=== PATIENT | female | born 1980 | race Two or more races ===

== ENCOUNTER → 2017-03-04 09:25 | Outpatient (CLI) | payer OTHER | END | disposition home or self-care (01) | LOC: LAB 09:25 | DX: N91.0 Primary amenorrhea (principal) ==

== ENCOUNTER 2018-02-24 10:56 | Outpatient (CLI) | payer OTHER | END 2018-02-24 11:18 | disposition home or self-care (01) | LOC: LAB 10:56 | DX: N91.2 Amenorrhea, unspecified (principal) ==

== ENCOUNTER 2018-03-04 11:07 | Outpatient (CLI) | payer OTHER | END 2018-03-04 11:15 | disposition home or self-care (01) | LOC: LAB 11:07 | DX: O20.0 Threatened abortion (principal) ==

== ENCOUNTER 2018-10-14 12:59 | Inpatient (IN) | payer OTHER ==
[~2018-10-14] VITALS: Ht 157.5 cm; Wt 2.7 kg
[2018-10-22] MEDS ORDERED: LOVENOX30 MG/0.3 SUBCUTANEO (06:38)
[2018-10-22] MEDS ORDERED: ASPIR 8181 MG PO (06:39)
[2018-10-22] MEDS ORDERED: PRENATAL TABLE1 EAC1 PO (06:52)
[2018-10-22] MEDS ORDERED: NIFE60TA3 PO (06:55)
== END 2018-10-25 14:18 | disposition home or self-care (01) | DRG 788 ==
LOC: OB/GYN 10-17 15:30 → LDR 10-22 04:18 → O/R 10-22 14:18 → OB/GYN 10-22 15:58
PROVIDERS: ADMIT Specialist
PROC: 3E033VJ Introduction of Other Hormone into Peripheral Vein, Percutaneous Approach (ICD-10-PCS; 2018-10-22)
PROC: 4A1HXCZ Monitoring of Products of Conception, Cardiac Rate, External Approach (ICD-10-PCS; 2018-10-22)
PROC: 10D00Z1 Extraction of Products of Conception, Low, Open Approach (ICD-10-PCS; principal; 2018-10-22 13:00)
DX: O82 Encounter for cesarean delivery without indication (principal); O65.4 Obstructed labor due to fetopelvic disproportion, unspecified; Z3A.38 38 weeks gestation of pregnancy; Z37.0 Single live birth

== ENCOUNTER 2019-07-20 19:43 | Emergency (ER) | payer OTHER ==
[~2019-07-20] VITALS: Ht 157.5 cm; Wt 48.1 kg
[~2019-07-20 19:43] MED LIST: ASPIR 8181 MG PO; LOVENOX30 MG/0.3 SUBCUTANEO; NIFE60TA3 PO; PRENATAL TABLE1 EAC1 PO
== END 2019-07-20 21:25 | disposition home or self-care (01) ==
LOC: ER 19:43
DX: S61.224A Laceration with foreign body of right ring finger without damage to nail, initial encounter (principal); W25.XXXA Contact with sharp glass, initial encounter; Y93.89 Activity, other specified; Y92.89 Other specified places as the place of occurrence of the external cause; Y99.8 Other external cause status

== ENCOUNTER 2023-05-21 12:29 | Outpatient (CLI) | payer OTHER | END 2023-05-21 12:31 | disposition home or self-care (01) | LOC: SONOGRAMA 12:29 | PROVIDERS: ATTEND Pathology Anatomic Pathology & Clinical Pathology | DX: D34 Benign neoplasm of thyroid gland (principal); E07.89 Other specified disorders of thyroid; E04.1 Nontoxic single thyroid nodule ==